=== PATIENT | male | born 1950 ===

== ENCOUNTER 2022-01-02 11:56 | Emergency (ER) | payer OTHER ==
[~2022-01-02] VITALS: Ht 180 cm; Wt 92.0 kg
--- NOTE | 2022-01-02 12:47 | ED Upper Extremity ---
General Chief Complaint: Upper Extremity Stated Complaint: RT HAND PAIN Nursing Triage Note: PT REPORTS PAIN IN HIS RIGHT HAND AND ARM FROM AN INJURY THAT OCCURED IN NOVEMBER 2020. Source: patient Exam Limitations: no limitations History of Present Illness Date Seen by Provider: Jan 02, 2022 Time Seen by Provider: 12:00 Initial Comments Patient is a 71-year-old [place] patient who presents with chronic pain exacerbation. Patient recently relocated from [place] and is awaiting his first [place] primary care appointment in 1 week. He is currently out of pain medication reports poorly controlled right arm/hand and low back pain. Denies acute injury or neurologic deficits. No other acute symptoms or complaints Onset: other Severity: moderate Pain/Injury Location: right forearm, right wrist Method of Injury: other Modifying Factors: Improves With Other Allergies and Home Medications Allergies Coded Allergies: iodine (Verified Allergy, Unknown, 01/02/22) Patient Home Medication List Home Medication List Reviewed: Yes Review of Systems Constitutional: see HPI Musculoskeletal: back pain, joint pain, joint swelling Past Gnaoubv-Vjgjvu-Eroskq Hx Patient Social History Tobacco Use?: No Use of E-Cig and/or Vaping dev: No Substance use?: No Alcohol Use?: No Pt feels they are or have been: No Physical Exam Vital Signs Vital Signs - First Documented 01/02/22 12:06 Temp 36.7 Pulse 100 Resp 16 B/P (MAP) 181/90 (120) Pulse Ox 100 O2 Delivery Room Air Capillary Refill : Less Than 3 Seconds Height, Weight, BMI Height: '" Weight: lbs. oz. kg; 28.00 BMI Method: General Appearance: WD/WN, no apparent distress, other (antalgic gait) HEENT: PERRL/EOMI Cardiovascular: normal peripheral pulses, regular rate, rhythm Wrist: Yes soft tissue tenderness, Yes swelling (R) Neurologic/Psychiatric: no motor/sensory deficits Progress/Results/Core Measures Results/Orders Vital Signs/I&O 01/02/22 12:06 Temp 36.7 Pulse 100 Resp 16 B/P (MAP) 181/90 (120) Pulse Ox 100 O2 Delivery Room Air Blood Pressure Mean: 120 Departure Impression Primary Impression: Chronic pain Disposition: 01 HOME, SELF-CARE Condition: Stable Departure-Patient Inst. Decision time for Depature: 12:44 Referrals: NO,LOCAL PHYSICIAN (PCP/Family) Primary Care Physician Patient Instructions: Chronic Pain (DC) Add. Discharge Instructions: Please follow up with your PCP as soon as possible for evaluation and management of chronic pain. All discharge instructions reviewed with patient and/or family. Voiced understanding. Scripts Cyclobenzaprine HCl (Cyclobenzaprine HCl) 10 Mg Tablet 10 MG PO TID, #30 TAB Prov: OLIVER DAVIS DO 01/02/22 Tramadol HCl (Tramadol HCl) 50 Mg Tablet 50 MG PO Q6H PRN for PAIN for 3 Days, #12 TAB 0 Refills Prov: OLIVER DAVIS DO 01/02/22 OLIVER DAVIS DO Jan 02, 2022 12:47
[2022-01-02] MEDS ORDERED: CYCL10TA25 PO (12:49)
[2022-01-02] MEDS ORDERED: TRM50T PO (12:49)
[2022-01-02 13:07] VITALS: BP 181/90
== END 2022-01-02 13:07 | disposition home or self-care (01) ==
LOC: ER FS 12:01
DX: G89.29 Other chronic pain (principal); Z28.310 Unvaccinated for COVID-19
CPT/HCPCS: 99281